=== PATIENT | female | born 1995 | race Caucasian/White ===

== ENCOUNTER 2019-03-12 15:48 | Emergency (ER) | payer SELFPAY ==
[2019-03-12 19:33] LABS: ABSOLUTE EOSINOPHILS # (AUTO) 0.1 10^3/uL (0.0-0.6); ABSOLUTE LYMPHOCYTES (AUTO) 3.7 10^3/uL (0.5-4.7); ABSOLUTE MONOCYTES (AUTO) 0.5 10^3/uL (0.1-1.4); BASOPHILS % (AUTO) 0.6 % (0-2); EOSINOPHILS % (AUTO) 0.7 % (0-6); HEMATOCRIT 40.7 % (36.0-47.0); HEMOGLOBIN 13.9 g/dL (12.0-15.5); LYMPHOCYTES % (AUTO) 51.4 % (13-45); MEAN CORPUSCULAR HEMOGLOBIN 30.9 pg (27.0-33.4); MEAN CORPUSCULAR HGB CONC 34.1 g/dL (32.0-36.0); MEAN CORPUSCULAR VOLUME 91 fl (80-97); MONOCYTES % (AUTO) 6.2 % (3-13); PLATELET COUNT 294 10^3/uL (150-450); RED CELL DISTRIBUTION WIDTH 16.7 % (11.5-14.0); SEGMENTED NEUTROPHILS % (AUTO) 41.1 % (42-78); TOTAL CELLS COUNTED % (AUTO) 100 %; WHITE BLOOD COUNT 7.3 10^3/uL (4.0-10.5)
[2019-03-12 19:54] LABS: ALBUMIN 4.8 g/dL (3.5-5.0); ALCOHOL 207 mg/dL (NONE DETECTED); ALKALINE PHOSPHATASE 75 U/L (38-126); ANION GAP 15 (5-19); ASPARTATE AMINO TRANSFERASE 331 U/L (14-36); BILIRUBIN,DIRECT 0.2 mg/dL (0.0-0.4); BILIRUBIN,TOTAL 0.8 mg/dL (0.2-1.3); BLOOD UREA NITROGEN 4 mg/dL (7-20); CALCIUM 9.4 mg/dL (8.4-10.2); CARBON DIOXIDE 25 mmol/L (22-30); CHLORIDE 107 mmol/L (98-107); POTASSIUM 3.4 mmol/L (3.6-5.0); TOTAL PROTEIN 8.1 g/dL (6.3-8.2)
[2019-03-12 20:03] LABS: ACETAMINOPHEN < 10 ug/mL (10-30); SALICYLATE < 1.0 mg/dL (2.0-20.0)
[2019-03-12 20:04] LABS: GLUCOSE 66 mg/dL (75-110)
[2019-03-12 20:10] LABS: APPEARANCE,URINE CLEAR; BILIRUBIN,URINE NEGATIVE (NEGATIVE); COLOR,URINE YELLOW; GLUCOSE, URINE NEGATIVE (NEGATIVE); KETONES,URINE 20 mg/dL (NEGATIVE); LEUKOCYTE ESTERASE,URINE NEGATIVE (NEGATIVE); NITRITE,URINE NEGATIVE (NEGATIVE); PROTEIN,URINE NEGATIVE (NEGATIVE); URINE SPECIFIC GRAVITY 1.005; UROBILINOGEN,URINE NEGATIVE mg/dL (<2.0)
--- NOTE | 2019-03-12 20:18 | EKG REPORT ---
SEVERITY:- BORDERLINE ECG - SINUS RHYTHM BORDERLINE PROLONGED QT INTERVAL : Confirmed by: Diego Artis MD 12-Mar-2019 20:17:54
[2019-03-12 20:20] LABS: URINE AMPHETAMINES SCREEN NEGATIVE; URINE BARBITURATES SCREEN NEGATIVE; URINE BENZODIAZEPINES SCREEN NEGATIVE; URINE COCAINE SCREEN NEGATIVE; URINE MARIJUANA (THC) SCREEN NEGATIVE; URINE METHADONE SCREEN NEGATIVE; URINE PHENCYCLIDINE SCREEN NEGATIVE
--- NOTE | 2019-03-12 21:03 | ER Document Report ---
ED General - General Chief Complaint: ETOH Abuse Stated Complaint: ALCOHOL ABUSE Time Seen by Provider: 03/12/19 20:57 Mode of Arrival: Stretcher Information source: Patient Cannot obtain history due to: Intoxicated Notes: 23-year-old female laying in the hallway bed stretcher sleeping after eating multiple snacks on the gurney tray. Patient is easily awakened by shaking by nursing staff. She denies any problems and just wants to sleep. Admits to being a heavy drinker. Not able to determine what sort of alcohol she does drink. TRAVEL OUTSIDE OF THE [place] IN LAST 30 DAYS: No - HPI Onset: This morning Onset/Duration: Sudden Quality of pain: No pain Severity: Mild Pain Level: Denies Associated symptoms: None Exacerbated by: Denies Similar symptoms previously: Yes Recently seen / treated by doctor: No - Related Data Allergies/Adverse Reactions: No Known Allergies Allergy (Unverified 03/12/19 16:04) Past Medical History - General Information source: Patient - Later in evening and network support manager hours patient was able to talk but prior to around midnight patient was very somnolent and having alcohol induced drowsiness. She was able to tell us her name wishes and advises she was hungry, Emergency Med Personnel - Social History Smoking Status: Current Every Day Smoker Cigarette use (# per day): Yes Chew tobacco use (# tins/day): No Smoking Education Provided: Yes Frequency of alcohol use: Heavy Drug Abuse: None Lives with: Alone - Homeless Family History: Reviewed & Not Pertinent Patient has suicidal ideation: No Patient has homicidal ideation: No Review of Systems - Review of Systems Constitutional: Malaise, Weakness EENT: No symptoms reported Cardiovascular: No symptoms reported Respiratory: No symptoms reported Gastrointestinal: No symptoms reported Genitourinary: No symptoms reported Musculoskeletal: No symptoms reported Skin: No symptoms reported Neurological/Psychological: Weakness Physical Exam - Vital signs Vitals: Temp Pulse Resp BP Pulse Ox 97.5 F 79 18 107/57 L 97 03/12/19 15:59 03/12/19 15:59 03/12/19 15:59 03/12/19 15:59 03/12/19 15:59 Interpretation: Normal - General General appearance: Other - drousy but arrousable - HEENT Head: Normocephalic Eyes: Normal Conjunctiva: Normal Cornea: Normal Extraocular movements intact: Yes Eyelashes: Normal Pupils: Dilated Ears: Normal Sinus: Normal Nasal: Normal Mouth/Lips: Normal Mucous membranes: Dry - Respiratory Respiratory status: No respiratory distress Chest status: Nontender Breath sounds: Normal Chest palpation: Normal - Cardiovascular Rhythm: Regular Heart sounds: Normal auscultation Murmur: No Friction rub: No Karie's crunch: No - Abdominal Inspection: Normal Distension: No distension Bowel sounds: Normal Tenderness: Nontender Organomegaly: No organomegaly - Back Back: Normal - Extremities General upper extremity: Normal inspection General lower extremity: Normal inspection - Neurological Neuro grossly intact: Yes Cognition: Normal - when awake Orientation: Disoriented to time [place] Coma Scale Eye Opening: None - to shaking [place] Coma Scale Motor: Obeys Commands Speech: Normal Cranial nerves: Normal Cerebellar coordination: Other - unable to assess sec to intoxication Course - Vital Signs Vital signs: Temp Pulse Resp BP Pulse Ox 97.8 F 88 15 132/81 H 97 03/13/19 04:55 03/13/19 00:38 03/13/19 00:38 03/13/19 07:32 03/13/19 07:29 - Laboratory Result Diagrams: 03/12/19 18:46 03/12/19 18:46 Laboratory results interpreted by me: 03/12/19 03/12/19 03/12/19 18:46 18:46 19:35 RDW 16.7 H Lymph % (Auto) 51.4 H Seg Neutrophils % 41.1 L Sodium 146.5 H Potassium 3.4 L BUN 4 L Glucose 66 L AST 331 H Urine Ketones 20 H Salicylates < 1.0 L Acetaminophen < 10 L Critical Care Note - Critical Care Note Total time excluding time spent on procedures (mins): 90 Comments: I advised drinking patient to stop drinking alcohol Discharge - Discharge Clinical Impression: Intoxication Condition: Good Disposition: HOME, SELF-CARE Additional Instructions: follow up with personal doctor; return to ER as needed; take medicines as directed ; encourage fluids; stop drinking alcohol; please note patient was sent back to me for signing and that the patient after sleeping all night after alcohol binge reported to nursing staff that she was homeless and requested to stay for breakfast this [birth year] birthday
[2019-03-13 07:38] VITALS: BP 132/81
== END 2019-03-13 08:09 | disposition home or self-care (01) ==
LOC: EDBD → ER 15:48
DX: F10.129 Alcohol abuse with intoxication, unspecified (principal); R53.81 Other malaise; R53.1 Weakness; F17.210 Nicotine dependence, cigarettes, uncomplicated
CPT/HCPCS: 36415; 80053; 80307; 81001; 81025; 82962; 85025; 93005; 93010; 99285

== ENCOUNTER 2019-06-19 20:33 | Emergency (ER) | payer SELFPAY ==
--- NOTE | 2019-06-19 20:46 | ER Document Report ---
ED Medical Screen (RME) - General Chief Complaint: Psych Problem Stated Complaint: IVC/ALCOHOL ABUSE Time Seen by Provider: 06/19/19 20:41 Mode of Arrival: Ambulatory Information source: Law Enforcement Notes: 23-year-old female presented to ED for public intoxication and yelling obscenities and aggressive behavior. She was running around in public states she was going hurt herself and other people. She is in the accompaniment of the police. They do have her in handcuffs. She is very aggressive loud and yelling obscenities. She states she does not plan to hurt or kill herself but she thinks these director of compensation are going to hurt her. She is yelling that the director of compensation are going to hurt her. She does have IVC papers taken out she is a danger to herself and others. I have greeted and performed a rapid initial assessment of this patient. A comprehensive ED assessment and evaluation of the patient, analysis of test results and completion of medical decision making process will be conducted by an additional ED providers. TRAVEL OUTSIDE OF THE [place] IN LAST 30 DAYS: No - Related Data Allergies/Adverse Reactions: No Known Allergies Allergy (Unverified 03/12/19 16:04)
[2019-06-19] MEDS ORDERED: LORAZEPAM INJ 2 MG/1 ML VIAL IV ONE (21:16)
[2019-06-19] MEDS ORDERED: HALOPERIDOL LACTATE INJ 5 MG/1 ML VIAL IM ONE (21:16)
[2019-06-19] MEDS ORDERED: DIPHENHYDRAMINE HCL 50 MG/ML VIAL ONE (21:16)
[2019-06-19] MEDS ORDERED: DIPHENHYDRAMINE HCL 50 MG/ML VIAL IV ONE (21:16)
[2019-06-19] MEDS ORDERED: HALOPERIDOL LACTATE INJ 5 MG/1 ML VIAL ONE (21:16)
--- NOTE | 2019-06-19 21:46 | ER Document Report ---
Entered by RASHEED REED SCRIBE 06/19/[id number] Acting as scribe for:LENI MORGAN IV, MD ED Psych Disorder / Suicide - General Chief Complaint: Psych Problem Stated Complaint: IVC/ALCOHOL ABUSE Time Seen by Provider: 06/19/19 20:41 Mode of Arrival: Ambulatory Information source: Patient, Law Enforcement Notes: This 23 year old female patient presents to the ED today accompanied by JAYCE in handcuffs with IVC papers. JAYCE states that the patient is well known to their department and reports they were called out due to public intoxication and the patient verbalizing suicidal and homicidal ideation. JAYCE states the patient was not combative; however she has been using vulgar and foul language. They state that today's episode was a combination of her "mental illness and ETOH" and note that Dr. Lopez recommended a 24-hour hold. While the patient was escorted from triage to her bed via JAYCE, she was yelling obscenities and became uncooperative and aggressive towards ED staff, so she was placed in 4-point restraints. Patient denies suicidal or homicidal ideation, but continues to make threats towards JAYCE and ED staff. Review of the IVC paperwork reveals that the patient is a danger to herself and others. TRAVEL OUTSIDE OF THE [place] IN LAST 30 DAYS: No - Related Data Allergies/Adverse Reactions: No Known Allergies Allergy (Unverified 03/12/19 16:04) Past Medical History - General Information source: Law Enforcement - Social History Smoking Status: Current Every Day Smoker Cigarette use (# per day): Yes Chew tobacco use (# tins/day): No Smoking Education Provided: No Frequency of alcohol use: Heavy Family History: Reviewed & Not Pertinent Patient has suicidal ideation: No Patient has homicidal ideation: No Review of Systems - Review of Systems Constitutional: No symptoms reported EENT: No symptoms reported Cardiovascular: No symptoms reported Respiratory: No symptoms reported Gastrointestinal: No symptoms reported Genitourinary: No symptoms reported Female Genitourinary: No symptoms reported Musculoskeletal: No symptoms reported Skin: See HPI, Other - Abrasion to right knee Hematologic/Lymphatic: No symptoms reported Neurological/Psychological: See HPI, Other - IVC papers. denies: Homicidal ideation, Suicidal ideation -: Yes All other systems reviewed and negative Physical Exam - Vital signs Vitals: Temp 97.4 F 06/19/19 20:44 - General General appearance: Alert, Other - Extremely animated. Uncooperative. Verbally belligerent. Uses foul language. - HEENT Head: Normocephalic, Atraumatic Eyes: Normal Pupils: PERRL - Respiratory Respiratory status: No respiratory distress Chest status: Nontender Breath sounds: Normal Chest palpation: Normal - Cardiovascular Rhythm: Regular Heart sounds: Normal auscultation Murmur: No Friction rub: No Gallop: None auscultated - Abdominal Inspection: Normal Distension: No distension Bowel sounds: Normal Tenderness: Nontender - Abdomen soft Organomegaly: No organomegaly - Back Back: Normal, Nontender - Extremities General upper extremity: Normal inspection Knee: Abrasion - Right knee - Neurological Neuro grossly intact: Yes - Psychological Associated symptoms: Uncooperative - Skin Skin Temperature: Warm Skin Moisture: Dry Skin Color: Normal Skin irregularity: other - Abrasion to right knee Course - Vital Signs Vital signs: Temp Pulse Resp BP Pulse Ox 97.4 F 61 20 92/59 L 98 06/19/19 20:54 06/19/19 20:54 06/20/19 02:01 06/20/19 02:00 06/20/19 02:01 - Laboratory Result Diagrams: 06/19/19 23:30 06/19/19 23:30 Laboratory results interpreted by me: 06/19/19 06/19/19 23:30 23:30 RDW 16.0 H Lymph % (Auto) 53.3 H Seg Neutrophils % 39.2 L Potassium 3.5 L Chloride 111 H BUN 5 L AST 113 H ALT 84 H Salicylates < 1.0 L Acetaminophen < 10 L Discharge - Discharge Clinical Impression: Suicidal ideation, Marijuana abuse Alcohol intoxication Qualifiers: Complication of substance-induced condition: uncomplicated Qualified Code(s): F10.920 - Alcohol use, unspecified with intoxication, uncomplicated Condition: Good Disposition: OTHER I personally performed the services described in the documentation, reviewed and edited the documentation which was dictated to the scribe in my presence, and it accurately records my words and actions.
--- NOTE | 2019-06-19 22:50 | PSYCHOLOGICAL NOTE ---
Psych Note - Psych Note Date seen by psych provider: 06/19/19 Time seen by psych provider: 21:00 Psych Note: Clinician joined attending nurse in [facility] to evaluate the patient. Patient arrived to [facility] ED via [employer]. She currently under the influence of alcohol. She reports drinking 2 beers but then confirms she also drank a bottle of fireball. Patient has flight of ideas, converstaional speech is loud. She reports talking to Geronimo Mancilla, Flo Mckeon etc. She reports she knows they are but they are her favorites. Patient makes frequent inappropriate sexual comments to both [employer] and [facility] staff. She is unable to answer questions appropriately. 24- hour petition for evaluation has been signed and placed in patient's chart.
[2019-06-19 23:46] LABS: ABSOLUTE LYMPHOCYTES (AUTO) 3.4 10^3/uL (0.5-4.7); ABSOLUTE MONOCYTES (AUTO) 0.4 10^3/uL (0.1-1.4); ABSOLUTE NEUT (AUTO) 2.5 10^3/uL (1.7-8.2); BASOPHILS % (AUTO) 0.6 % (0-2); EOSINOPHILS % (AUTO) 0.2 % (0-6); HEMATOCRIT 38.5 % (36.0-47.0); HEMOGLOBIN 13.2 g/dL (12.0-15.5); LYMPHOCYTES % (AUTO) 53.3 % (13-45); MEAN CORPUSCULAR HEMOGLOBIN 30.2 pg (27.0-33.4); MEAN CORPUSCULAR HGB CONC 34.2 g/dL (32.0-36.0); MEAN CORPUSCULAR VOLUME 89 fl (80-97); MONOCYTES % (AUTO) 6.7 % (3-13); PLATELET COUNT 253 10^3/uL (150-450); RED BLOOD COUNT 4.35 10^6/uL (3.72-5.28); SEGMENTED NEUTROPHILS % (AUTO) 39.2 % (42-78); TOTAL CELLS COUNTED % (AUTO) 100 %; WHITE BLOOD COUNT 6.4 10^3/uL (4.0-10.5)
[2019-06-19 23:59] LABS: ALBUMIN 4.3 g/dL (3.5-5.0); ALCOHOL 203 mg/dL (NONE DETECTED); ALKALINE PHOSPHATASE 49 U/L (38-126); ANION GAP 9 (5-19); ASPARTATE AMINO TRANSFERASE 113 U/L (14-36); BILIRUBIN,TOTAL 0.4 mg/dL (0.2-1.3); BLOOD UREA NITROGEN 5 mg/dL (7-20); CALCIUM 8.7 mg/dL (8.4-10.2); CARBON DIOXIDE 24 mmol/L (22-30); CHLORIDE 111 mmol/L (98-107); GLUCOSE 98 mg/dL (75-110); POTASSIUM 3.5 mmol/L (3.6-5.0); TOTAL PROTEIN 7.2 g/dL (6.3-8.2)
[2019-06-20 00:02] LABS: ACETAMINOPHEN < 10 ug/mL (10-30); SALICYLATE < 1.0 mg/dL (2.0-20.0)
[2019-06-20 02:13] LABS: APPEARANCE,URINE CLEAR; BILIRUBIN,URINE NEGATIVE (NEGATIVE); COLOR,URINE YELLOW; GLUCOSE, URINE NEGATIVE (NEGATIVE); KETONES,URINE NEGATIVE (NEGATIVE); LEUKOCYTE ESTERASE,URINE NEGATIVE (NEGATIVE); NITRITE,URINE NEGATIVE (NEGATIVE); PROTEIN,URINE NEGATIVE (NEGATIVE); UROBILINOGEN,URINE NEGATIVE mg/dL (<2.0)
[2019-06-20 02:28] LABS: URINE AMPHETAMINES SCREEN NEGATIVE; URINE BARBITURATES SCREEN NEGATIVE; URINE BENZODIAZEPINES SCREEN NEGATIVE; URINE COCAINE SCREEN NEGATIVE; URINE METHADONE SCREEN NEGATIVE; URINE PHENCYCLIDINE SCREEN NEGATIVE
[2019-06-20 02:29] LABS: URINE MARIJUANA (THC) SCREEN UNCONFIRMED POSITIVE
--- NOTE | 2019-06-20 10:18 | EKG REPORT ---
SEVERITY:- ABNORMAL ECG - SINUS RHYTHM SUPRAVENTRICULAR BIGEMINY : Confirmed by: Kiah Mahmood MD 20-Jun-2019 10:17:15
--- NOTE | 2019-06-20 10:52 | ER Document Report ---
Doctor's Note Notes: 06/20/19 10:50 23-year-old female who was brought to the emergency department last evening due to abnormal behavior including expressing a desire to hurt herself. This morning patient denies any desire to hurt herself, is quite calm, expresses a desire to go home. States she does not recall much about last night but thinks she was "drinking and saying stupid shit." Denies any pain. Denies hearing any voices, when questioned about talking to Flo Mckeon and Geronimo Mancilla patient states "they are , of course of not talking to them." GENERAL: Alert, interacts well. No acute distress. HEAD: Normocephalic, atraumatic EYES: Pupils equal, round and reactive to light, extraocular movements intact. ENT: Oral mucosa moist, tongue midline. NECK: Full range of motion, supple, trachea midline. HEART: Regular rate and rhythm, no murmurs, gallops or rubs. LUNGS: Lungs are clear to auscultation bilaterally, no wheezes, rales or rhonchi, no respiratory distress. EXTREMITIES: Moves all 4 extremities spontaneously, no edema. No cyanosis. NEUROLOGICAL: Alert and oriented x3, normal speech. PSYCH: Normal mood, normal affect. SKIN: Warm, Dry, normal turgor, no rashes or lesions noted. I will wait for behavioral health to do a second evaluation this morning, suspect patient will likely be safe to be released later this afternoon. 06/20/19 13:21 Patient acknowledges she has a drinking problem is no longer suicidal, behavioral health agrees with patient being safe for discharge. Patient will be discharged to home, has a friend that she can stay with as long as she does not drink, will be given short prescription for Librium in case she develops withdrawal symptoms. Has been given resources for outpatient help with alcohol abuse.
[2019-06-20 14:26] VITALS: BP 104/65
== END 2019-06-20 14:22 | disposition home or self-care (01) ==
LOC: ER 20:33
DX: R45.851 Suicidal ideations (principal); F12.10 Cannabis abuse, uncomplicated; F10.920 Alcohol use, unspecified with intoxication, uncomplicated; F17.210 Nicotine dependence, cigarettes, uncomplicated
CPT/HCPCS: 93005; 99285; 96372; 96374; 96375; 36415; 80307 ×4; 85025; 81025; 80053; 81001; 93010; J1200; J1630; J2060

== ENCOUNTER 2019-07-03 14:24 | Emergency (ER) | payer SELFPAY ==
[2019-07-03] MEDS ORDERED: NORMAL SALINE 1000 ML 1,000 ML IV ONE ×2 (14:57→18:18)
--- NOTE | 2019-07-03 15:02 | ER Document Report ---
ED General - General Stated Complaint: WITHDRAWAL/POSSIBLE OVERDOSE Time Seen by Provider: 07/03/19 14:46 TRAVEL OUTSIDE OF THE [place] IN LAST 30 DAYS: No - HPI Notes: Chief complaint: Altered mental status HPI: 23-year-old female seen here within the last week with request for alcohol detox. The provider evaluating her at that time felt she was stable for outpatient referral. EMS received a call this afternoon that she was u nresponsive in an automobile at a parking lot at a local store. They administered Narcan and after that noted that the patient was responsive only to sternal rub but was hemodynamically stable. They established an IV line and transported her here. No other history is obtainable from patient this time and there are no other individuals here to provide supplemental history. - Related Data Allergies/Adverse Reactions: No Known Allergies Allergy (Verified 07/03/19 18:54) Past Medical History - General Information source: Emergency Med Personnel, [facility] Records Cannot obtain history due to: Altered mental status - Social History Smoking Status: Current Every Day Smoker Family History: Reviewed & Not Pertinent Review of Systems - Review of Systems -: Yes ROS unobtainable due to patient's medical condition Physical Exam - Vital signs Vitals: Resp BP Pulse Ox 25 H 93/57 L 98 07/03/19 14:29 07/03/19 14:29 07/03/19 14:29 - Notes Notes: GENERAL: Slender female of approximately stated age who is obtunded. SKIN: Good turgor no rashes. HEAD: Normocephalic atraumatic. EYES: Pupils are mid position and sluggish. Sclerae clear. EARS: CANALS AND TMS CLEAR. NOSE: CLEAR. MOUTH: Moist mucosa. Good dentition. No stridor or edema. No drooling. Throat: Gag reflex intact. NECK: Supple. No masses or thyromegaly. No adenopathy. Carotids 2+ without bruits. No JVD. BACK: Symmetrical without tenderness. CHEST: Respirations unlabored. Breath sounds clear and symmetrical. HEART: Regular rhythm. No murmur gallop or rub. ABDOMEN: Soft nontender without masses, organomegaly or rebound. Bowel sounds normally active. No bruits. GENITALIA: Deferred. EXTREMITIES: No edema. No calf tenderness. Cap refill less than 1.5 seconds. Dorsalis pedis and posterior tibial pulses 3+ and symmetrical. NEUROLOGICAL: Patient is obtunded. GCS 10. She localizes pain in response to sternal rub. Word salad speech. Eyes open to painful stimuli. Course - Re-evaluation Re-evalutation: 07/03/19 18:47 Blood alcohol was 232. Urine tox screen positive for THC. Patient is now easily arousable and will follow simple commands squeezing fingers. Speech is very slurred. She is oriented to person and place.0 EKG shows some borderline prolongation of QT interval is otherwise unremarkable. Primary problem at this point appears to be alcohol intoxication. I have consulted with the behavioral health team. They would like to reevaluate this lady after she miriam. - Vital Signs Vital signs: Temp Pulse Resp BP Pulse Ox 97.9 F 21 H 95/63 L 99 07/03/19 15:05 07/03/19 17:46 07/03/19 17:46 07/03/19 17:46 - Laboratory Result Diagrams: 07/03/19 14:40 07/03/19 14:40 Laboratory results interpreted by me: 07/03/19 07/03/19 14:40 14:40 RDW 16.6 H Lymph % (Auto) 49.4 H Chloride 109 H AST 108 H ALT 128 H Salicylates < 1.0 L Acetaminophen < 10 L - EKG Interpretation by Me Additional EKG results interpreted by me: 07/03/19 18:50 Twelve-lead EKG from 1434 hrs. reviewed contemporaneously by me demonstrating normal sinus rhythm with rate of 73 QRS axis of +81 degrees and a borderline prolonged QT interval of 432 ms. There are no acute ST/T wave changes. Discharge - Discharge Clinical Impression: EtOH intoxication, Chronic alcoholism, Cannabis abuse Disposition: PSYCH HOSP/UNIT
[2019-07-03 15:20] LABS: ABSOLUTE LYMPHOCYTES (AUTO) 3.5 10^3/uL (0.5-4.7); ABSOLUTE MONOCYTES (AUTO) 0.4 10^3/uL (0.1-1.4); ABSOLUTE NEUT (AUTO) 3.1 10^3/uL (1.7-8.2); BASOPHILS % (AUTO) 0.6 % (0-2); EOSINOPHILS % (AUTO) 0.4 % (0-6); HEMATOCRIT 37.3 % (36.0-47.0); LYMPHOCYTES % (AUTO) 49.4 % (13-45); MEAN CORPUSCULAR HEMOGLOBIN 30.9 pg (27.0-33.4); MEAN CORPUSCULAR HGB CONC 34.8 g/dL (32.0-36.0); MEAN CORPUSCULAR VOLUME 89 fl (80-97); MONOCYTES % (AUTO) 6.3 % (3-13); PLATELET COUNT 235 10^3/uL (150-450); RED CELL DISTRIBUTION WIDTH 16.6 % (11.5-14.0); SEGMENTED NEUTROPHILS % (AUTO) 43.3 % (42-78); TOTAL CELLS COUNTED % (AUTO) 100 %; WHITE BLOOD COUNT 7.1 10^3/uL (4.0-10.5)
[2019-07-03 15:37] LABS: ACETAMINOPHEN < 10 ug/mL (10-30); ALBUMIN 4.1 g/dL (3.5-5.0); ALCOHOL 232 mg/dL (NONE DETECTED); ALKALINE PHOSPHATASE 41 U/L (38-126); ANION GAP 10 (5-19); ASPARTATE AMINO TRANSFERASE 108 U/L (14-36); BILIRUBIN,TOTAL 0.5 mg/dL (0.2-1.3); BLOOD UREA NITROGEN 10 mg/dL (7-20); CARBON DIOXIDE 23 mmol/L (22-30); CHLORIDE 109 mmol/L (98-107); GLUCOSE 107 mg/dL (75-110); POTASSIUM 4.1 mmol/L (3.6-5.0); SALICYLATE < 1.0 mg/dL (2.0-20.0); TOTAL PROTEIN 7.2 g/dL (6.3-8.2)
[2019-07-03 15:45] LABS: APPEARANCE,URINE CLEAR; BILIRUBIN,URINE NEGATIVE (NEGATIVE); COLOR,URINE STRAW; GLUCOSE, URINE NEGATIVE (NEGATIVE); KETONES,URINE NEGATIVE (NEGATIVE); PROTEIN,URINE NEGATIVE (NEGATIVE); URINE SPECIFIC GRAVITY 1.003; UROBILINOGEN,URINE NEGATIVE mg/dL (<2.0)
[2019-07-03 16:07] LABS: URINE AMPHETAMINES SCREEN NEGATIVE; URINE BARBITURATES SCREEN NEGATIVE; URINE BENZODIAZEPINES SCREEN NEGATIVE; URINE COCAINE SCREEN NEGATIVE; URINE METHADONE SCREEN NEGATIVE; URINE PHENCYCLIDINE SCREEN NEGATIVE
[2019-07-03 16:12] LABS: URINE MARIJUANA (THC) SCREEN UNCONFIRMED POSITIVE
--- NOTE | 2019-07-03 19:08 | PSYCHOLOGICAL NOTE ---
Psych Note - Psych Note Date seen by psych provider: 07/03/19 Time seen by psych provider: 18:27 Psych Note: Reason for Consult: api architect joined attending physician for attempted evaluation. Patient's ETOH is 232. She currently is unable to awaken to engage. Evaluation will be re attempted. Patient is irritable and states she will not be answering any questions at this time because she is sleeping. Patient states she is still under the influence and denies needing to be discharged. Patient is known to clinician and department with a documented history of alcohol abuse and homelessness. Patient current is declining assist and refuses to engage in mental health services. She is voicing wanting to stay in the ED because she still feels under the influence but will not talk to clinician to answer any questions. At this time, the patient will be cleared from acute psychiatric services. There is no supporting facts for the patient to meet IVC criteria. Patient does not have a document history of harming or self or others. She is homeless and abuses alcohol but historically has refused assistance in detox. Resource lists will be provided to the patient with her discharge if she changes her minds and would like sobriety. Dr. Lopez was consulted on the care and management of this patient; attending physician is in agreement with recommendations and disposition.
[2019-07-04 11:01] VITALS: BP 119/63
== END 2019-07-04 11:23 | disposition home or self-care (01) ==
LOC: ER 14:24
DX: F10.229 Alcohol dependence with intoxication, unspecified (principal); F12.10 Cannabis abuse, uncomplicated; Y90.7 Blood alcohol level of 200-239 mg/100 ml; R41.82 Altered mental status, unspecified; F17.200 Nicotine dependence, unspecified, uncomplicated
CPT/HCPCS: 99285; 96360; 96361; 36415; 80307 ×4; 83735; 84703; 85025; 80053; 81001; J7030

== ENCOUNTER 2019-07-27 13:43 | Emergency (ER) | payer SELFPAY ==
[2019-07-27] MEDS ORDERED: NORMAL SALINE 1000 ML 1,000 ML IV ONE ×2 (13:56→15:26)
--- NOTE | 2019-07-27 14:15 | ER Document Report ---
ED General - General Chief Complaint: Possible Overdose Stated Complaint: OVERDOSE Time Seen by Provider: 07/27/19 13:53 Mode of Arrival: Medic Information source: Emergency Med Personnel TRAVEL OUTSIDE OF THE [place] IN LAST 30 DAYS: No - HPI Notes: Patient is brought in by paramedics. They state that they were called to a gas station as patient was acting inappropriately and swinging. They state they found the patient in a bathroom at the gas station. Patient has been unable to give him any history or interact with them coherently. They state they had to sedate the patient with ketamine and Versed in route due to patient's combativeness and uncooperativeness. Here patient will not carry on any rational conversation or interact with me in a rational way to obtain a history. Patient symptoms appear severe. They appear constant. She does appear to be under the influence of some type of drug and/or alcohol. There is nothing apparently makes her symptoms better or worse. Radiation of the symptoms is unknown. Patient cannot characterize her symptoms. - Related Data Allergies/Adverse Reactions: No Known Allergies Allergy (Verified 07/03/19 18:54) Past Medical History - General Information source: Emergency Med Personnel Cannot obtain history due to: Uncooperative, Altered mental status - Social History Smoking Status: Current Every Day Smoker Frequency of alcohol use: Heavy - From old records Drug Abuse: Other - Patient appears to be under the influence of some type of drug. Family History: Reviewed & Not Pertinent Review of Systems - Review of Systems -: Yes ROS unobtainable due to patient's medical condition - Cannot obtain review of symptoms due to altered mental status Physical Exam - Vital signs Vitals: Temp 99.1 F 07/27/19 13:43 Interpretation: Tachycardic, Hypoxic - General General appearance: Combative - HEENT Head: Normocephalic, Atraumatic Eyes: Normal Pupils: PERRL Mucous membranes: Moist - Respiratory Respiratory status: No respiratory distress Chest status: Nontender Breath sounds: Normal Chest palpation: Normal - Cardiovascular Rhythm: Tachycardia Heart sounds: Normal auscultation Murmur: No - Abdominal Inspection: Normal Distension: No distension Bowel sounds: Normal Tenderness: Nontender Organomegaly: No organomegaly - Back Back: Normal, Nontender - Extremities General upper extremity: Normal inspection, Nontender, Normal color, Normal ROM, Normal temperature General lower extremity: Normal inspection, Nontender, Normal color, Normal ROM, Normal temperature, Normal weight bearing. No: Michel's sign - Neurological Cognition: Confused Orientation: Disoriented to person, Disoriented to place, Disoriented to time [place] Coma Scale Eye Opening: Spontaneous [place] Coma Scale Verbal: Inappropriate [place] Coma Scale Motor: Localizes to Pain [place] Coma Scale Total: 12 Motor strength normal: LUE, RUE, LLE, RLE - Psychological Associated symptoms: Combative, Confused - Skin Skin Temperature: Warm Skin Moisture: Dry Skin Color: Normal Course - Re-evaluation Re-evalutation: 07/27/19 15:44 Patient arrived obviously under the influence of alcohol and/or drugs. She has been reassessed continually she is gradually coming more awake. She is talking coherently now although she is not cooperative and belligerent. For example I asked her if she could tell me her name and she said "no". She is yelling and screaming. We will try sedating her with Ativan as she does not appear to be in a state where she will cooperate with treatment. She does have significantly low potassium and will require IV replacement. She continues to remain mildly tachycardic. Her saturations are 100%. Her blood pressure has been stable. Her mentation is gradually getting better and better. 07/27/19 17:01 Patient reexamined again just now. Patient has very awake despite multiple doses of Ativan. She is still actively hallucinating and talking to people that are not present. Patient will not answer any questions appropriately. Her speech his clear but she interacts with the hallucinations and not with any staff. 07/27/19 18:08 Patient reassessed just now. Patient is awake very talkative. She answers some questions appropriately other question she does not. she still not follow com mands appropriately. Patient's potassium was significantly low and is being replaced. She is a threat to remove her IV if her hands are left unrestrained. We are going to attempt to unrestrain her feet and let her use a bedpan and see how she responds. If she seems appropriate we will proceed to discontinuing restraints for her arms as well. If not we may need to re-restrain her. She denies having any memory of doing anything today such as an illicit substance. She denies using alcohol as well. However patient's history is very suspect because when asked her name she says "hope". However she does tell me her correct age which is 23. Other questions she just does not answer. 07/27/19 19:04 Patient reassessed just now. Restraints will have to be reordered due to patient still having violent tendencies and swinging extremities. She also risk removing her IV which she needs to replace her electrolytes. Patient is definitely more awake and lucid than arrival but is still not capable of being discharged as she is still hallucinating, confused and uncooperative. pt will be turned over to Dr. Hathaway. - Vital Signs Vital signs: Temp Pulse Resp BP Pulse Ox 99.6 F 07/27/19 15:09 - Laboratory Result Diagrams: 07/27/19 14:47 07/27/19 14:47 Laboratory results interpreted by me: 07/27/19 07/27/19 07/27/19 14:47 14:47 15:30 WBC 15.1 H RDW 16.6 H Lymph % (Auto) 9.4 L Absolute Neuts (auto) 12.6 H Seg Neutrophils % 83.6 H ABG pO2 46.5 L ABG HCO3 19.5 L ABG Total CO2 20.6 L ABG O2 Saturation 81.2 L Potassium 2.8 L* AST 411 H ALT 342 H Total Protein 8.6 H Salicylates < 1.0 L Acetaminophen < 10 L - Diagnostic Test Radiology reviewed: Image reviewed, Reports reviewed - EKG Interpretation by Me EKG shows normal: Sinus rhythm Rate: Tachycardia - 106 Rhythm: NSR [place]/QRS: No: Right axis deviation, Left axis deviation Discharge - Discharge Clinical Impression: Hypokalemia, Visual hallucination Altered mental status Qualifiers: Altered mental status type: disorientation Qualified Code(s): R41.0 - Disorientation, unspecified Condition: Fair Disposition: OTHER
--- NOTE | 2019-07-27 14:32 | RADIOLOGY REPORT (SQ) ---
EXAM DESCRIPTION: CHEST SINGLE VIEW IMAGES COMPLETED DATE/TIME: 07/27/2019 2:20 pm REASON FOR STUDY: ams COMPARISON: None. EXAM PARAMETERS: NUMBER OF VIEWS: One view. TECHNIQUE: Single frontal radiographic view of the chest acquired. RADIATION DOSE: NA LIMITATIONS: None. FINDINGS: LUNGS AND PLEURA: No opacities, masses or pneumothorax. No pleural effusion. MEDIASTINUM AND HILAR STRUCTURES: No masses. Contour normal. HEART AND VASCULAR STRUCTURES: Heart normal in size. Normal vasculature. BONES: No acute findings. HARDWARE: None in the chest. OTHER: No other significant finding. IMPRESSION: NO ACUTE RADIOGRAPHIC FINDING IN THE CHEST. TECHNICAL DOCUMENTATION: JOB ID: [id number] 2010 [employer]- All Rights Reserved Reading location - IP/workstation name: [email or web address]
[2019-07-27 15:01] LABS: ABSOLUTE LYMPHOCYTES (AUTO) 1.4 10^3/uL (0.5-4.7); ABSOLUTE NEUT (AUTO) 12.6 10^3/uL (1.7-8.2); BASOPHILS % (AUTO) 0.2 % (0-2); HEMATOCRIT 42.2 % (36.0-47.0); HEMOGLOBIN 14.4 g/dL (12.0-15.5); LYMPHOCYTES % (AUTO) 9.4 % (13-45); MEAN CORPUSCULAR HEMOGLOBIN 30.6 pg (27.0-33.4); MEAN CORPUSCULAR HGB CONC 34.1 g/dL (32.0-36.0); MEAN CORPUSCULAR VOLUME 90 fl (80-97); MONOCYTES % (AUTO) 6.8 % (3-13); PLATELET COUNT 259 10^3/uL (150-450); RED CELL DISTRIBUTION WIDTH 16.6 % (11.5-14.0); SEGMENTED NEUTROPHILS % (AUTO) 83.6 % (42-78); TOTAL CELLS COUNTED % (AUTO) 100 %; WHITE BLOOD COUNT 15.1 10^3/uL (4.0-10.5)
[2019-07-27 15:23] LABS: ACETAMINOPHEN < 10 ug/mL (10-30); ALKALINE PHOSPHATASE 49 U/L (38-126); ANION GAP 14 (5-19); ASPARTATE AMINO TRANSFERASE 411 U/L (14-36); BILIRUBIN,DIRECT 0.1 mg/dL (0.0-0.4); BILIRUBIN,TOTAL 1.3 mg/dL (0.2-1.3); BLOOD UREA NITROGEN 8 mg/dL (7-20); CALCIUM 9.9 mg/dL (8.4-10.2); CARBON DIOXIDE 24 mmol/L (22-30); CHLORIDE 106 mmol/L (98-107); GLUCOSE 82 mg/dL (75-110); SALICYLATE < 1.0 mg/dL (2.0-20.0); TOTAL PROTEIN 8.6 g/dL (6.3-8.2)
[2019-07-27 15:25] LABS: POTASSIUM 2.8 mmol/L (3.6-5.0)
[2019-07-27] MEDS ORDERED: LORAZEPAM INJ 2 MG/1 ML VIAL IV ONE ×3 (15:26→23:48)
[2019-07-27 15:36] LABS: ARTERIAL BLOOD BASE EXCESS -5.1 mmol/L; ARTERIAL BLOOD H2CO3 1.07 mmol/L (1.05-1.35); ARTERIAL BLOOD HCO3 19.5 mmol/L (20-24); ARTERIAL BLOOD O2 SATURATION 81.2 % (94-98); ARTERIAL BLOOD PCO2 35.4 mmHg (35-45); ARTERIAL BLOOD PH 7.36 (7.35-7.45); ARTERIAL BLOOD PO2 46.5 mmHg (80-100); ARTERIAL BLOOD TOTAL CO2 20.6 mmol/L (21-25)
[2019-07-27 15:38] LABS: ARTERIAL BLOOD FIO2 ROOM AIR
[2019-07-27] MEDS: POTASSI CL 20 MEQ/50 ML RIDER 20 MEQ/50 ML RTUPB IV SCH ×2 (15:40→17:21)
--- NOTE | 2019-07-27 20:32 | EKG REPORT ---
SEVERITY:- BORDERLINE ECG - SINUS TACHYCARDIA BORDERLINE PROLONGED QT INTERVAL : Confirmed by: Kiah Mahmood MD 27-Jul-2019 20:32:03
--- NOTE | 2019-07-27 23:48 | ER Document Report ---
Doctor's Note Notes: 07/27/19 23:36 Patient is thrashing around in the bed, trying to self release from hard restraints, when I tried to discuss with her how she is doing what is going on patient is able to tell me her name and that she is at the hospital but she cannot tell me the year or who the president is. Patient cannot follow the thread of the conversation long enough to answer my questions about what happened today or how she is feeling. Patient is exhibiting evidence of paranoia as well. Patient is not 100% intact at this point. Patient will be given more Ativan for sedation. Behavioral health consult will be placed for the morning as well. 07/27/19 23:48 07/27/19 23:49 Patient is now shouting for her brother, states she knows he is outside in the hallway and that we are hiding him from her.
[2019-07-28] MEDS ORDERED: DIPHENHYDRAMINE HCL 50 MG/ML VIAL IM ONE (00:01)
[2019-07-28] MEDS ORDERED: HALOPERIDOL LACTATE INJ 5 MG/1 ML VIAL IM ONE (00:01)
[2019-07-28] MEDS ORDERED: LORAZEPAM INJ 2 MG/1 ML VIAL IM ONE (00:01)
--- NOTE | 2019-07-28 08:30 | RADIOLOGY REPORT (SQ) ---
EXAM DESCRIPTION: CT HEAD WITHOUT IMAGES COMPLETED DATE/TIME: 07/28/2019 8:01 am REASON FOR STUDY: ams COMPARISON: None. TECHNIQUE: Axial images acquired through the brain without intravenous contrast. Images reviewed wi th bone, brain and subdural windows. Additional sagittal and coronal reconstructions were generated. Images stored on PACS. All CT scanners at this facility use dose modulation, iterative reconstruction, and/or weight based d osing when appropriate to reduce radiation dose to as low as reasonably achievable (ALARA). [facility]: Dose Right [facility]: CareDose [facility]: Dose Right [facility]: Teradose 4D [facility]: Ampex RADIATION DOSE: CT Rad equipment meets quality standard of care and radiation dose reduction techniq ues were employed. CTDIvol: 53.2 mGy. DLP: 1124 mGy-cm. LIMITATIONS: None. FINDINGS: There is no acute intracranial hemorrhage, vascular territorial infarct, extra-axial fluid collection, mass effect or midline shift. The crews-white matter differentiation is preserved. Ther e is no effacement of the cerebral sulci or basal subarachnoid cisterns. The caliber the ventricles is concordant with the degree of sulcation. The orbits and globes are intact. The paranasal sinuses are clear. There is no fracture of the calv arium. IMPRESSION: No acute intracranial abnormality. EVIDENCE OF ACUTE STROKE: NO. COMMENT: Quality ID # [id number]: Final reports with documentation of one or more dose reduction techniques (e.g., Automated exposure control, adjustment of the mA and/or kV according to patient size, use of iterative reconstruction technique) TECHNICAL DOCUMENTATION: JOB ID: [id number] 2010 [employer]- All Rights Reserved Reading location - IP/workstation name: [email or web address]
--- NOTE | 2019-07-28 09:01 | ER Document Report ---
Doctor's Note Notes: 07/28/19 09:01 I reviewed the chart. Patient was brought in combative last night. Had to be sedated one time. Patient had hypokalemia with a potassium of 2.8. Unknown how much of her replacement she received that she did take out her IV overnight. Will order repeat BMP. Awaiting psychiatric consultation
[2019-07-28 09:53] LABS: APPEARANCE,URINE SLIGHTLY-CLOUDY; BILIRUBIN,URINE NEGATIVE (NEGATIVE); COLOR,URINE AMBER; GLUCOSE, URINE NEGATIVE (NEGATIVE); KETONES,URINE TRACE mg/dL (NEGATIVE); PROTEIN,URINE 30 mg/dL (NEGATIVE); URINE SPECIFIC GRAVITY 1.021
[2019-07-28 10:05] LABS: AMORPHOUS SEDIMENT,UR 3+
[2019-07-28 10:06] LABS: BLOOD UREA NITROGEN 8 mg/dL (7-20); CALCIUM 8.8 mg/dL (8.4-10.2); CARBON DIOXIDE 25 mmol/L (22-30); CHLORIDE 114 mmol/L (98-107); GLUCOSE 73 mg/dL (75-110); POTASSIUM 3.5 mmol/L (3.6-5.0)
[2019-07-28 10:17] LABS: URINE BARBITURATES SCREEN NEGATIVE; URINE COCAINE SCREEN NEGATIVE; URINE METHADONE SCREEN NEGATIVE; URINE PHENCYCLIDINE SCREEN NEGATIVE
[2019-07-28 10:19] LABS: URINE BENZODIAZEPINES SCREEN UNCONFIRMED POSITIVE
[2019-07-28 10:20] LABS: URINE MARIJUANA (THC) SCREEN UNCONFIRMED POSITIVE
[2019-07-28 10:29] LABS: ANION GAP 4 (5-19)
[2019-07-28 15:47] VITALS: BP 101/62
[2019-07-28] MEDS ORDERED: POTASSIUM CHLORIDE 20 MEQ PACKET PO ONE (16:04)
== END 2019-07-28 16:28 | disposition home or self-care (01) ==
LOC: ER 13:43
DX: T50.901A Poisoning by unspecified drugs, medicaments and biological substances, accidental (unintentional), initial encounter (principal); F15.10 Other stimulant abuse, uncomplicated; F12.10 Cannabis abuse, uncomplicated; E87.6 Hypokalemia; F22 Delusional disorders; R41.0 Disorientation, unspecified; R00.0 Tachycardia, unspecified; F17.200 Nicotine dependence, unspecified, uncomplicated; Z78.1 Physical restraint status
CPT/HCPCS: 93005; 99285; 36415; 87086; 80307 ×4; 82803; 85025; 81025; 80053; 81001; 71045; 70450; 93010; J1200; J1630; J2060 ×2; J3480; J7030; J3490; 87088; 87186